=== PATIENT | male | born 1965 | race Caucasian/White ===

== ENCOUNTER 2021-05-23 13:27 | Emergency (ER) | payer MEDICAID ==
[~2021-05-23] VITALS: Ht 177.8 cm; Wt 74.8 kg
--- NOTE | 2021-05-23 13:45 | NUR ---
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 Have same before dx Arthritis/bursitis. Rates pain /. Will continue to monitor the patient.
[2021-05-23] MEDS ORDERED: KETOROLAC TROMETHAMINE INJ 30 MG/ML VIAL IM ONE (14:00)
[2021-05-23] MEDS ORDERED: HYDROCODONE/APAP 5/325MG TABLET PO ONE (14:00)
[2021-05-23] MEDS ORDERED: KETOROLAC TROMETHAMINE 15 MG/ML VIAL ONE (14:08)
[2021-05-23] MEDS ORDERED: HYDROCODONE/APAP 5/325MG TABLET ONE (14:08)
[2021-05-23] MEDS ORDERED: HYDR-4303 PO (15:38)
[2021-05-23] MEDS ORDERED: CYCL10TA9 PO (15:39)
--- NOTE | 2021-05-23 16:18 | NUR ---
Patient discharged to home in stable condition. Written and verbal after care instructions given. Patient verbalizes understanding of instruction.
[2021-05-23 16:19] VITALS: BP 156/94
== END 2021-05-23 16:19 | disposition home or self-care (01) ==
LOC: ER 13:29
DX: M25.551 Pain in right hip (principal)
CPT/HCPCS: 73502; 96372; 99283; J1885

== ENCOUNTER 2024-05-12 01:54 | Emergency (ER) | payer MEDICAID, OTHER ==
[~2024-05-12] VITALS: Ht 172.7 cm; Wt 74.8 kg
[~2024-05-12 01:54] MED LIST: CYCL10TA9 PO; HYDR-4303 PO
[2024-05-12] MEDS ORDERED: ONDANSETRON HCL/PF 4 MG/2 ML VIAL ONE ×2 (02:28→03:31)
[2024-05-12] MEDS ORDERED: DICYCLOMINE HCL INJ 20 MG/2 ML AMPUL IM ONE (02:28)
[2024-05-12] MEDS: IV NS 0.9% 1,000 ML BAG IV ONE (02:30)
[2024-05-12] MEDS: DICYCLOMINE HCL INJ 20 MG/2 ML AMPUL IM ONE (02:30)
[2024-05-12 02:34] LABS: BASOPHILS % (AUTO) 1.1 % (0.0-2.0); EOSINOPHILS # (AUTO) 0.1 K/uL (0.0-0.7); EOSINOPHILS % (AUTO) 1.3 % (0.0-6.0); HEMATOCRIT 43 % (39-51); HEMOGLOBIN 14.9 g/dL (13.5-17.5); LYMPHOCYTES # (AUTO) 1.7 K/uL (0.8-4.8); LYMPHOCYTES % (AUTO) 37.2 % (20.0-44.0); MEAN CORPUSCULAR HEMOGLOBIN 32 PG (26.0-33.0); MEAN CORPUSCULAR HGB CONC 35 g/dl (31.0-36.0); MEAN CORPUSCULAR VOLUME 91 fL (80-96); MONOCYTES # (AUTO) 0.4 K/uL (0.1-1.30); MONOCYTES % (AUTO) 9.8 % (2.0-12.0); NEUTROPHILS # (AUTO) 2.3 K/uL (1.8-8.9); NEUTROPHILS % (AUTO) 50.6 % (43.0-81.0); PLATELET COUNT (AUTO) 192 K/uL (150-450); RED CELL DISTRIBUTION WIDTH 12.8 % (11.5-15.0); WHITE BLOOD COUNT (AUTO) 4.5 K/uL (4.3-11.0)
[2024-05-12] MEDS: ONDANSETRON HCL/PF 4 MG/2 ML VIAL IVP ONE (02:34)
[2024-05-12 02:42] LABS: CALCIUM, SERUM 9.7 mg/dL (8.5-10.1); CARBON DIOXIDE 25 mmol/L (21-32); CHLORIDE 105 mmol/L (98-107); CREATININE 1.1 mg/dL (0.6-1.3); GLUCOSE 117 mg/dL (74-106); POTASSIUM 3.5 mmol/L (3.5-5.1); SODIUM SERUM 143 mmol/L (136-145); UREA NITROGEN, BLOOD 15 mg/dL (7-18)
[2024-05-12 02:47] LABS: INR 0.96 (0.91-1.10); PARTIAL THROMBOPLASTIN TIME 27.3 SEC (24.3-34.3); PROTHROMBIN TIME 10.2 SECS (9.2-11.1)
[2024-05-12 02:48] LABS: ALANINE AMINOTRANSFERASE 25 U/L (12-78); ALBUMIN 3.9 g/dL (3.4-5.0); ALKALINE PHOSPHATASE 81 U/L (46-116); ASPARTATE AMINOTRANSFERASE 14 U/L (15-37); BILIRUBIN,DIRECT 0.2 mg/dL (0.0-0.2); BILIRUBIN,TOTAL 0.8 mg/dL (0.2-1.0); LIPASE 34 U/L (16-77); TOTAL PROTEIN, SERUM 7.4 g/dL (6.4-8.2)
[2024-05-12] MEDS ORDERED: MORPHINE SULFATE INJ 4 MG/ML DISP.SYRIN ONE (03:32)
[2024-05-12] MEDS: ONDANSETRON HCL/PF 4 MG/2 ML VIAL IV ONE (03:36)
[2024-05-12] MEDS: MORPHINE SULFATE INJ 2 MG/ML DISP.SYRIN IV ONE (03:36)
[2024-05-12 04:26] LABS: APPEARANCE,URINE CLEAR (CLEAR); BILIRUBIN,URINE 1+ (NEGATIVE); BLOOD, URINE 3+ Ery/uL (NEGATIVE); COLOR,URINE DARK YELLOW (YELLOW); KETONES,URINE TRACE mg/dL (NEGATIVE); LEUKOCYTE ESTERASE ,URINE NEGATIVE (NEGATIVE); NITRITE, URINE NEGATIVE (NEGATIVE); PH,URINE 5.5 (5.0-8.0); PROTEIN,URINE 1+ mg/dl (NEGATIVE); UGLUCOSE NEGATIVE (NEGATIVE); UROBILINOGEN,URINE 0.2 EU/dL (0.2)
[2024-05-12 04:27] LABS: ADD URINE CULTURE NO; BACTERIA,URINE Rare /HPF (None Seen); RBC,URINE 21-50 /HPF (0-2); SQUAMOUS EPITHELIAL CELL,UR Few /HPF (None Seen)
[2024-05-12] MEDS ORDERED: TAMS-12 PO (04:37)
[2024-05-12] MEDS ORDERED: ONDA4TAB5 PO (04:37)
[2024-05-12] MEDS ORDERED: IBUP-1957 PO (04:37)
[2024-05-12 04:57] VITALS: BP 127/83; TEMP 98; O2SAT 98
== END 2024-05-12 04:58 | disposition home or self-care (01) ==
LOC: ER 01:56
DX: N20.0 Calculus of kidney (principal); R19.7 Diarrhea, unspecified; Z79.899 Other long term (current) drug therapy; Z79.1 Long term (current) use of non-steroidal anti-inflammatories (NSAID)
CPT/HCPCS: 99285; 74176; 96374; 71045; 96361; 96375; 96372; 93005; 96376; 85025; 80048; 83690; 80076; 81001; 36415; 84484; 85730; J2270; J2405 ×2; J7030; J0500